=== PATIENT | female | born 1975 | race African-American/Black ===

== ENCOUNTER 2017-11-17 18:54 | Emergency (ER) | END 2017-11-17 21:59 | disposition home or self-care (01) ==

== ENCOUNTER 2017-12-09 16:34 | Emergency (ER) | END 2017-12-10 03:59 ==

== ENCOUNTER 2018-01-22 16:53 | Emergency (ER) | END 2018-01-22 18:10 | disposition left against medical advice (07) ==

== ENCOUNTER 2018-06-23 13:58 | Emergency (ER) | payer SELFPAY ==
[~2018-06-23] VITALS: Ht 165.1 cm; Wt 72.0 kg
[~2018-06-23 13:58] MED LIST: RISP2TAB3 PO; SERT100T PO
[2018-06-23 14:01] VITALS: BP 132/72; PULSE 109; RESP 18; Ht 165.1 cm; Wt 72.0 kg
== END 2018-06-23 16:30 | disposition left against medical advice (07) ==
LOC: FTE 13:58
DX: Z53.21 Procedure and treatment not carried out due to patient leaving prior to being seen by health care provider (principal)

== ENCOUNTER 2018-07-09 14:43 | Emergency (ER) | payer OTHER ==
[~2018-07-09] VITALS: Wt 136.6 kg
--- NOTE | 2018-07-09 14:58 | ERD ---
ER Documentation Chief Complaint Chief Complaint bib [phone] with c/o non traumatic mina. yelling " she has cancer" HPI The patient is a 43-year-old female, presenting to the ER because of acute agitation. She keeps yelling that she has brain cancer and need to be treated. . She has presented to the ER in November 2017 for suicidal ideation Medical/surgical history/social history/review of system: Unable to obtain due to her condition ROS All systems reviewed and are negative except as per history of present illness. Medications Home Meds Discontinued Reported Medications Risperidone* (Risperidone*) 2 Mg Tablet, 2 MG PO DAILY, TAB 12/09/17 Sertraline Hcl* (Zoloft*) 100 Mg Tablet, 100 MG PO DAILY, #30 TAB 12/09/17 Allergies Allergies: Coded Allergies: No Known Allergy (Unverified , 12/09/17) PMhx/Soc History of Surgery: Yes (LEFT WRIST SURGERY, RIGHT HAND, RIGHT THIGH, CS) Anesthesia Reaction: No Hx Neurological Disorder: No Hx Respiratory Disorders: No Hx Cardiac Disorders: No Hx Psychiatric Problems: No Hx Miscellaneous Medical Probl: No Hx Alcohol Use: Yes (OCCASSIONAL) Hx Substance Use: Yes (cracked cocaine 3 days ago) Hx Tobacco Use: Yes Smoking Status: Never smoker Physical Exam Vitals Vital Signs Date Temp Pulse Resp B/P (MAP) Pulse Ox O2 O2 Flow FiO2 Time Delivery Rate 07/09/18 98.8 91 20 144/90 98 14:49 (108) Physical Exam Const: No acute distress. Head: Atraumatic. Eyes: Normal Conjunctiva. ENT: Normal External Ears, Nose and Mouth. Neck: Full range of motion. No meningismus. Resp: Clear to auscultation bilaterally. Cardio: Regular rate and rhythm. Abd: Soft, non distended, normal bowel sounds, non tender. Skin: No petechiae or rashes. Back: No midline or flank tenderness. Ext: No cyanosis, or edema. Neur: Awake and alert. No focal deficit. Limited exam due to her condition Psych: Psychotic Result Diagram: 07/09/18 1521 07/09/18 1521 Results 24 hrs Laboratory Tests Test 07/09/18 15:00 07/09/18 15:12 07/09/18 15:13 07/09/18 15:15 Urine Color STRAW Urine Clarity CLEAR Urine pH 6.0 Urine Specific 1.008 [place] Urine Ketones NEGATIVE mg/dL Urine Nitrite NEGATIVE mg/dL Urine Bilirubin NEGATIVE mg/dL Urine NEGATIVE mg/dL Urobilinogen Urine Leukocyte NEGATIVE Claudia/ul Esterase Urine Hemoglobin NEGATIVE mg/dL Urine Glucose NEGATIVE mg/dL Urine Total NEGATIVE mg/dl Protein Urine Opiates Negative Screen Urine Negative Barbiturates Urine Negative Amphetamines Screen Urine Negative Benzodiazepines Screen Urine Cocaine Negative Screen Urine Negative Cannabinoids Bedside Glucose 90 mg/dL Bedside Urine pH 6.0 (LAB) Bedside Urine Negative Protein (LAB) Bedside Urine Negative Glucose (UA) Bedside Urine Negative Ketones (LAB) Bedside Urine Negative Blood Bedside Urine Negative Nitrite (LAB) Bedside Urine Negative Leukocyte Esteras e (L POC Beta HCG, NEGATIVE Qualitative Test 07/09/18 15:20 07/09/18 15:21 Beta HCG, < 2.4 mIU/ml Quantitative White Blood Count 5.1 10^3/ul Red Blood Count 4.39 10^6/ul Hemoglobin 12.0 g/dl Hematocrit 37.1 % Mean Corpuscular 84.5 fl Volume Mean Corpuscular 27.3 pg Hemoglobin Mean Corpuscular 32.3 g/dl Hemoglobin Concen t Red Cell 14.6 % Distribution Width Platelet Count 307 10^3/UL Mean Platelet 9.7 fl Volume Immature 0.400 % Granulocytes % Neutrophils % 60.1 % Lymphocytes % 25.8 % Monocytes % 9.2 % Eosinophils % 3.7 % Basophils % 0.8 % Nucleated Red 0.0 /100WBC Blood Cells % Immature 0.020 10^3/ul Granulocytes # Neutrophils # 3.1 10^3/ul Lymphocytes # 1.3 10^3/ul Monocytes # 0.5 10^3/ul Eosinophils # 0.2 10^3/ul Basophils # 0.0 10^3/ul Nucleated Red 0.0 10^3/ul Blood Cells # Sodium Level 143 mmol/L Potassium Level 4.3 mmol/L Chloride Level 108 mmol/L Carbon Dioxide 24 mmol/L Level Anion Gap 11 Blood Urea 13 mg/dl Nitrogen Creatinine 0.81 mg/dl Est Glomerular > 60 mL/min Filtrat Rate mL/min Glucose Level 86 mg/dl Calcium Level 9.2 mg/dl Total Bilirubin 0.2 mg/dl Direct Bilirubin 0.00 mg/dl Indirect 0.2 mg/dl Bilirubin Aspartate Amino 30 IU/L Transf (AST/SGOT) Alanine 22 IU/L Aminotransferase (ALT/SGPT) Alkaline 102 IU/L Phosphatase Total Protein 7.5 g/dl Albumin 4.0 g/dl Globulin 3.50 g/dl Albumin/Globulin 1.14 Ratio Salicylates Level 3.2 mg/dl Acetaminophen < 10.0 ug/ml Level Ethyl Alcohol 235.0 mg/dl Level Procedures/MDM Brain CT Pending MEDICAL MAKING DECISION: The patient is a 43-year-old female, resenting with acute psychosis, acute alcohol intoxication The differential diagnoses considered include but are not limited to substance abuse, substance-induced psychosis, decompensated psychiatric illness, anxiety attack, panic attack Departure Diagnosis: Primary Impression: Psychosis Additional Impression: Alcohol abuse Comments The patient's blood pressure was elevated (>120/80) but appears stable without evidence of hypertension emergency or urgency. The patient was counseled about the risks of hypertension and urged to pursue outpatient monitoring and therapy within a week with their primary care physician. She will be evaluated by telepsychiatrist where she [place] RAISA MCNEAL MD July 09, 2018 14:58
--- NOTE | 2018-07-09 17:44 | PSY ---
Date/Time of Note Date/Time of Note DATE: 07/09/18 TIME: 20:41 Psychiatric Subjective Eval Consent Pt consented to telemedicine: Yes Subjective Evaluation Patient location: emergency Chief Complaint: bib [phone] with c/o non traumatic mina. 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, etoh use, bib 911 was very agitated, tells MD she wants to kill herself and "anything is possible." Past Psych Hx: + ho psych admits and suicide attempts PMHx: reports she has cancer All: ibuprofen Meds: denies MSe: uncooperative, loud, organized, irritable, denies delusions +SI i Imp: 43 yo female acute danger to self Utox UhcgVoluntary psych admit For moderate agitation Zyprexa 5mg po prn For severe agitation chlorpromazine 25mg im prn Alcohol withdrawal precautions with CIWA Daily thiamine 100mg po folate 1mg po mvi Medical history Problems Medical Problems: (1) Abdominal pain Status: Acute (2) Alcohol abuse Status: Acute (3) Alcohol abuse with intoxication, uncomplicated Status: Acute (4) Gallstone Status: Acute (5) Patient left after triage Status: Acute (6) Patient left after triage Status: Acute (7) Patient left without being seen Status: Acute (8) Psychosis Status: Acute (9) Suicidal ideation Status: Acute Allergies: Coded Allergies: No Known Allergy (Unverified , 12/09/17) Psychiatric Objective Eval Mental Status Examination: Laboratory Results Laboratory Tests Test 07/09/18 15:00 07/09/18 15:12 07/09/18 15:13 07/09/18 15:15 Urine Color STRAW Urine Clarity CLEAR Urine pH 6.0 Urine Specific 1.008 [place] Urine Ketones NEGATIVE mg/dL Urine Nitrite NEGATIVE mg/dL Urine Bilirubin NEGATIVE mg/dL Urine NEGATIVE mg/dL Urobilinogen Urine Leukocyte NEGATIVE Claudia/ul Esterase Urine Hemoglobin NEGATIVE mg/dL Urine Glucose NEGATIVE mg/dL Urine Total NEGATIVE mg/dl Protein Urine Opiates Negative Screen Urine Negative Barbiturates Urine Negative Amphetamines Screen Urine Negative Benzodiazepines Screen Urine Cocaine Negative Screen Urine Negative Cannabinoids Bedside Glucose 90 mg/dL Bedside Urine pH 6.0 (LAB) Bedside Urine Negative Protein (LAB) Bedside Urine Negative Glucose (UA) Bedside Urine Negative Ketones (LAB) Bedside Urine Negative Blood Bedside Urine Negative Nitrite (LAB) Bedside Urine Negative Leukocyte Esteras e (L POC Beta HCG, NEGATIVE Qualitative Test 07/09/18 15:20 07/09/18 15:21 Beta HCG, < 2.4 mIU/ml Quantitative White Blood Count 5.1 10^3/ul Red Blood Count 4.39 10^6/ul Hemoglobin 12.0 g/dl Hematocrit 37.1 % Mean Corpuscular 84.5 fl Volume Mean Corpuscular 27.3 pg Hemoglobin Mean Corpuscular 32.3 g/dl Hemoglobin Concen t Red Cell 14.6 % Distribution Width Platelet Count 307 10^3/UL Mean Platelet 9.7 fl Volume Immature 0.400 % Granulocytes % Neutrophils % 60.1 % Lymphocytes % 25.8 % Monocytes % 9.2 % Eosinophils % 3.7 % Basophils % 0.8 % Nucleated Red 0.0 /100WBC Blood Cells % Immature 0.020 10^3/ul Granulocytes # Neutrophils # 3.1 10^3/ul Lymphocytes # 1.3 10^3/ul Monocytes # 0.5 10^3/ul Eosinophils # 0.2 10^3/ul Basophils # 0.0 10^3/ul Nucleated Red 0.0 10^3/ul Blood Cells # Sodium Level 143 mmol/L Potassium Level 4.3 mmol/L Chloride Level 108 mmol/L Carbon Dioxide 24 mmol/L Level Anion Gap 11 Blood Urea 13 mg/dl Nitrogen Creatinine 0.81 mg/dl Est Glomerular > 60 mL/min Filtrat Rate mL/min Glucose Level 86 mg/dl Calcium Level 9.2 mg/dl Total Bilirubin 0.2 mg/dl Direct Bilirubin 0.00 mg/dl Indirect 0.2 mg/dl Bilirubin Aspartate Amino 30 IU/L Transf (AST/SGOT) Alanine 22 IU/L Aminotransferase (ALT/SGPT) Alkaline 102 IU/L Phosphatase Total Protein 7.5 g/dl Albumin 4.0 g/dl Globulin 3.50 g/dl Albumin/Globulin 1.14 Ratio Salicylates Level 3.2 mg/dl Acetaminophen < 10.0 ug/ml Level Ethyl Alcohol 235.0 mg/dl Level Assessment and Plan Recommendation/Plan Multiple antipsychotics: No Discharge Disposition: Psychiatric inpatient Legal Status: Voluntary ALEJANDRA RYAN July 09, 2018 17:44
[2018-07-09] MEDS ORDERED: THIAMINE 100 MG TAB PO SCH (19:00)
[2018-07-09] MEDS ORDERED: OLANZAPINE 5 MG TAB PO PRN (19:00)
[2018-07-09] MEDS ORDERED: FOLIC ACID 1 MG TAB PO SCH (19:00)
[2018-07-09] MEDS ORDERED: MULTIVITAMINS THERAPEUTIC TAB PO SCH (19:00)
[2018-07-09] MEDS ORDERED: CHLORPROMAZINE 25 MG INJ IM PRN (19:00)
[2018-07-10] MEDS ORDERED: ACETAMINOPHEN 325 MG TAB ONE (00:09)
[2018-07-10 00:13] VITALS: BP 142/85; PULSE 89; RESP 18
[2018-07-10] MEDS ORDERED: ACETAMINOPHEN 325 MG TAB PO ONE (00:30)
== END 2018-07-10 00:10 | disposition home or self-care (01) ==
LOC: E/R 14:43
DX: F10.159 Alcohol abuse with alcohol-induced psychotic disorder, unspecified (principal); R40.2142 Coma scale, eyes open, spontaneous, at arrival to emergency department; R40.2362 Coma scale, best motor response, obeys commands, at arrival to emergency department; R40.2252 Coma scale, best verbal response, oriented, at arrival to emergency department; Z87.891 Personal history of nicotine dependence
CPT/HCPCS: 70450; 80053; 80307; 81003; 81025; 82962; 84702; 85025; J3230; Z7502; Z7610